=== PATIENT | male | born 1990 | race African-American/Black ===

== ENCOUNTER 2016-12-29 08:07 | Day surgery (SDC) | payer OTHER ==
[2016-12-29 09:14] LABS: PROTHROMBIN TIME 14.1 SEC (11.4-15.4)
[2016-12-29 09:15] LABS: PARTIAL THROMBOPLASTIN TIME 27.2 SEC (23.5-35.8)
[2016-12-29 14:08] VITALS: BP 135/78
== END 2016-12-29 14:00 | disposition home or self-care (01) ==
LOC: RAD 08:07
PROVIDERS: ATTEND Nurse Practitioner
PROC: B01BYZZ Fluoroscopy of Spinal Cord using Other Contrast (ICD-10-PCS; principal; 2016-12-29)
DX: M54.16 Radiculopathy, lumbar region (principal)
CPT/HCPCS: 36415; 72132; 72265; 85610; 85730